=== PATIENT | female | born 1980 | race Caucasian/White ===

== ENCOUNTER 2021-09-22 00:20 | Emergency (ER) | payer OTHER, SELFPAY ==
[2021-09-22 00:35] VITALS: BP 126/83; PULSE 85; RESP 20; TEMP 36.7; O2SAT 99; BMI 34.7
--- NOTE | 2021-09-22 01:14 | ED_ITS ---
HPI - General Adult General Chief complaint: Abdominal Pain Stated complaint: VOMITING, STOMACHE SWOLLEN Time Seen by Provider: 09/22/21 00:53 Source: patient Mode of arrival: Ambulatory History of Present Illness HPI narrative: 41-year-old woman with irritable bowel syndrome who presents with 3-4 weeks of increasing abdominal pain that she describes as a burning pain in her upper abdomen when she has not eaten but significant increase in overall bloating and low pelvic pain that is been getting worse to the point that she is having d ifficulty eating and has lost at least 5 lb in the last weeks. She describes no fevers, cough, chills. She is chronically nauseated but does not actually vomit. She notes that she tries to eat a vegan diet however tends to eat mostly food from [employer], [employer] and pizza. She has not seemingly correlated healthy food intake with irritable bowel symptoms. She does have episodes of intermittent diarrhea and constipation. The abdominal pain and bloating over the last 3 weeks are dramatically different for her however. Related Data Previous Rx's Medication Instructions Recorded hyoscyamine sulfate 0.125 mg tablet 0.25 mg PO QID PRN #60 tab 09/22/21 Allergies Allergy/AdvReac Type Severity Reaction Status Date / Time SULFA Allergy Unknown Uncoded 08/01/17 11:50 Review of Systems Review of Systems Narrative: Remainder of complete review of systems is otherwise unremarkable except for that included in the HPI. Patient History Social History Smoking Status: Current every day smoker Smoking Status: Current every day smoker tobacco type: cigarettes Substance Use Type: marijuana Exam Initial Vital Signs Initial Vital Signs: Vital Signs Temperature 98.0 F 09/22/21 00:35 Pulse Rate 85 09/22/21 00:35 Respiratory Rate 20 09/22/21 00:35 Blood Pressure 126/83 09/22/21 00:35 Pulse Oximetry 99 09/22/21 00:35 General: Pale, mildly diaphoretic and tachypneic appearing in moderate distress but Able to give a complete and coherent history. Well-nourished well-developed HEENT: Moist mucous membranes, normal sclera with reactive pupils, Neck: No JVD, supple Respiratory: Lungs are clear to auscultation, no wheezing no rales no rhonchi. Full and symmetrical air movement Cardiac: Regular rate and rhythm no murmurs no bruits Abdomen: Soft, bloated significantly tender in the lower quadrants to even superficial palpation but no specific rebound or guarding. She has some mild tenderness in the epigastric region no tenderness in the right upper quadrant. Skin: Warm and dry, no rashes Neurologic: Grossly neurologically intact with no obvious asymmetries or abnormalities Extremities: No trauma, well perfused Psych: Cooperative, appropriate insight and affect Course Orders Ordered: ED Orders 09/22/21 01:13 Complete Blood Count AUTO DIFF Stat Comprehensive Metabolic Panel Stat Lipase Stat Magnesium Stat Test Serum,Qual Stat 09/22/21 01:48 CT abdomen pelvis w con Stat Hydromorphone HCl (Hydromorphone 0.5 Mg Inj) 0.5 mg IV Q15MIN PRN PRN Reason: Pain, Last Admin: 09/22/21 02:00 Dose: 0.5 mg Documented by: ANGY Discontinued Medications Al Hydrox/Mg Hydrox/Simethicone 20 ml/ Lidocaine HCl 15 ml 0 ml PO NOW ONE Stop: 09/22/21 00:57 Last Admin: 09/22/21 01:22 Dose: 35 ml Documented by: ANGY Sodium Chloride (Normal Saline 0.9%) 1,000 mls @ 1,000 mls/hr IV BOLUS ONE Stop: 09/22/21 02:47 Last Infusion: 09/22/21 04:08 Dose: 0 mls/hr Documented by: Admin: 09/22/21 01:59 Dose: 1,000 mls/hr Documented by: ANGY Ondansetron HCl (Ondansetron 4 Mg/2 Ml Inj) 4 mg IV NOW ONE Stop: 09/22/21 01:49 Last Admin: 09/22/21 01:59 Dose: 4 mg Documented by: ANGY Vital Signs Vital signs: Vital Signs - 8 hr 09/22/21 00:35 Temperature 98.0 F Pulse Rate 85 Respiratory Rate 20 Blood Pressure 126/83 Pulse Oximetry 99 Medical Decision Making Lab Data Result diagrams: 09/22/21 01:13 09/22/21 01:13 Labs: Lab Results 09/22/21 09/22/21 09/22/21 Range/Units 01:13 01:13 01:13 WBC 8.1 (4.5-11.0) X10^3/uL RBC 4.11 (4.0-5.2) X10^6/uL Hgb 12.7 (12.0-16.0) g/dL Hct 36.6 (36-46) % MCV 89.2 (80-100) fL MCH 30.8 (26-34) PG MCHC 34.6 (30-36) % RDW 12.1 (11.6-14.8) % Plt Count 301 (150-400) X10^3/uL Neut % (Auto) 65.0 (50-75) % Lymph % (Auto) 27.9 (25-40) % [place] % (Auto) 4.6 (3-14) % Eos % (Auto) 1.6 L (2-4) % Baso % (Auto) 0.9 (0-2) % Neut # (Auto) 5200 (2226-0238) /uL Lymph # (Auto) 2200 (4881-2264) /uL [place] # (Auto) 400 (0-900) /uL Eos # (Auto) 100 (0-450) /uL Baso # (Auto) 100 (0-100) /uL Sodium 137 (137-145) mmol/L Potassium 4.2 (3.4-5.1) mmol/L Chloride 105 (98-107) mmol/L Carbon Dioxide 22 (22-32) mmol/L BUN 14 (7-17) mg/dL Creatinine 0.51 L (0.52-1.04) mg/dL Estimated GFR > 60 (>60) mL/min BUN/Creatinine Ratio 27.5 H (6-22) Glucose 99 (70-100) mg/dL Calcium 8.7 (8.4-10.2) mg/dL Magnesium 1.9 (1.6-2.3) mg/dL Total Bilirubin 0.6 (0.2-1.3) mg/dL AST 29 (14-36) IU/L ALT 17 (<35) IU/L Alkaline Phosphatase 47 (38-126) U/L Total Protein 7.2 (6.3-8.2) g/dL Albumin 4.1 (3.5-5.0) g/dL Globulin 3.1 (1.7-4.1) g/dL Albumin/Globulin Ratio 1.3 (1.0-2.8) Lipase 83 (23-300) U/L Serum , Qual Negative (Negative) Point of Care Testing Test Results Negative Point of care testing: Point of Care Testing Test Results Negative Imaging Data CT scan - abdomen/pelvis: Radiologist's Impression: No evidence colitis, diverticulitis, bowel obstruction or obstructive uropathy. Appendix is not seen. Bilateral ovarian cysts. No ascites. Xin Lomax MD [facility] Narrative Medical decision making narrative: 41-year-old woman with history of irritable bowel syndrome and reflux recently started on omeprazole comes in with increasingly uncomfortable lower abdominal pain to the point that she is unable to sleep. She states that she is having bowel movements. CT scan is unrevealing as is blood work. No obvious bacterial infection or intra-abdominal infection or surgical diagnosis. With independent review of the CT scan she does have moderate stool loading throughout the colon and that may well be contributing to her overall discomfort. She requests a prescription for hike 0 seeming which will be prescribed. Will also send her home with a bottle of magnesium citrate to see if cleaning out the stool helps with the bloating and pain. Will ask her to continue the omeprazole she currently is taking to help with the burning upper abdominal pain. Also ask she follow-up with her primary care doctor and she may need referral to gastroenterology for upper and lower endoscopies at some point in the future. At this time, she is hemodynamically stable with no indications for hospital admission and she is safe for home discharge Discharge Plan Departure Patient Disposition: Home Clinical Impression: GERD (gastroesophageal reflux disease) Constipation Qualifiers: Constipation type: unspecified constipation type Qualified Code(s): K59.00 - Constipation, unspecified Abdominal pain Qualifiers: Abdominal location: generalized Qualified Code(s): R10.84 - Generalized abdominal pain Instructions: DI for Gastroesophageal Reflux Disease (GERD), DI for Constipation, DI for Irritable Bowel Syndrome Activity Restrictions/Additional Instructions: Thank you for coming in today Fortunately, I did not find any evidence for infection, kidney failure, liver failure, abdominal tumors or masses. Your colon is full of stool and that may be contributing to the bloating and discomfort. I am sending home with a bottle of magnesium citrate to try to completely clean out your colon. If you feel that this is not effective you can add MiraLax until you get to very loose stool. I will happily refill your hyoscyamine to help with irritable bowel symptoms Please do continue with the omeprazole that you are currently taking I would recommend a follow-up with her primary care doctor within the next 2-3 weeks if you are still having symptoms they a primary care doctor may suggest a gastroenterology referral. If you find that you are getting worse or develop any new symptoms, please feel free to return to the emergency department for further evaluation. Prescriptions: New hyoscyamine sulfate 0.125 mg tablet 0.25 mg PO QID PRN (Reason: dyspepsia) Qty: 60 0RF Referrals: Tapan Vann MD [Primary Care Provider] -
[2021-09-22] MEDS: MAG HYDROX/ALUMINUM/SIMETH SUS 20 ML, LIDOCAINE VISCOUS 2% 15 ML PO (01:22)
[2021-09-22 01:26] LABS: Add Manual Diff / Slide Review NO; Basophils Absolute Auto 100 /uL (0-100); Basophils Percent Auto 0.9 % (0-2); Eosinophils Absolute Auto 100 /uL (0-450); Eosinophils Percent Auto 1.6 % (2-4); Hematocrit 36.6 % (36-46); Hemoglobin 12.7 g/dL (12.0-16.0); Lymphocytes Absolute Auto 2200 /uL (1100-4500); Lymphocytes Percent Auto 27.9 % (25-40); Mean Corpuscular HGB Conc 34.6 % (30-36); Mean Corpuscular Hemoglobin 30.8 PG (26-34); Mean Corpuscular Volume 89.2 fL (80-100); Monocytes Absolute Auto 400 /uL (0-900); Monocytes Percent Auto 4.6 % (3-14); Neutrophils Absolute Auto 5200 /uL (1500-7000); Platelet Count 301 X10^3/uL (150-400); Red Blood Cell Count 4.11 X10^6/uL (4.0-5.2); Red Cell Distribution Width 12.1 % (11.6-14.8); White Blood Cell Count 8.1 X10^3/uL (4.5-11.0)
[2021-09-22 01:36] LABS: Alanine Aminotransferase 17 IU/L (<35); Albumin 4.1 g/dL (3.5-5.0); Albumin Globulin Ratio 1.3 (1.0-2.8); BUN Creatinine Ratio 27.5 (6-22); Bilirubin Total 0.6 mg/dL (0.2-1.3); Blood Urea Nitrogen 14 mg/dL (7-17); Calcium 8.7 mg/dL (8.4-10.2); Carbon Dioxide 22 mmol/L (22-32); Chloride 105 mmol/L (98-107); Estimated Glomerular Filt Rate > 60 mL/min (>60); Globulin 3.1 g/dL (1.7-4.1); Glucose 99 mg/dL (70-100); Lipase 83 U/L (23-300); Sodium 137 mmol/L (137-145); Total Protein 7.2 g/dL (6.3-8.2)
[2021-09-22 01:41] LABS: HEMOLYSIS 85 (0-50); Potassium 4.2 mmol/L (3.4-5.1)
[2021-09-22 01:42] LABS: Alkaline Phosphatase 47 U/L (38-126); Aspartate Aminotransferase 29 IU/L (14-36); Magnesium 1.9 mg/dL (1.6-2.3)
--- NOTE | 2021-09-22 01:48 | DI.CT.S_ITS ---
PROCEDURE: CT ABDOMEN PELVIS W CON INDICATIONS: Abdominal pain, bloating, weight loss TECHNIQUE: After the administration of intravenous contrast, axial sections acquired from the lung bases to the pubic symphysis. Coronal and sagittal reformats were performed. For radiation dose reduction, the following was used: automated exposure control, adjustment of mA and/or kV according to patient size. COMPARISON: None. FINDINGS: Image quality: Excellent. Lung bases: Mild bibasilar atelectasis. Heart: No significant findings. ABDOMEN: Liver: Unremarkable. Gallbladder: Unremarkable Biliary ducts: Unremarkable. Pancreas: Unremarkable. Spleen: Unremarkable. Adrenal Glands: Unremarkable. Kidneys and Ureters: Kidneys are symmetric in size and enhancement, and there is no obstructive uropathy. No perinephric inflammatory changes. Ureters are normal in course and caliber. Stomach and Bowel: Stomach, small bowel loops, and colon are unremarkable. Scattered colonic diverticulosis without evidence for acute diverticulitis. The appendix is not definitively visualized. However, no secondary findings of acute inflammation are noted in the right lower quadrant. Peritoneum: No abnormal intraperitoneal fluid. No free air. Ventral Wall: Small fat containing umbilical hernia without acute inflammation. Abdominal Nodes: No retroperitoneal or mesenteric adenopathy by size criteria. Vessels: Aorta and inferior vena cava are normal in size. PELVIS: Pelvic Organs: Bilateral ovarian cysts are present. Largest measures up to 2.9 cm in size. No surrounding inflammatory changes. Bladder: Unremarkable. Pelvic Nodes: No enlarged lymph nodes. Miscellaneous: No hernias are seen. Bones: Unremarkable. No acute compression fractures. IMPRESSION: 1. CT abdomen and pelvis without acute abnormalities. 2. Colonic diverticulosis without evidence for acute diverticulitis. 3. The appendix is not definitively visualized. No secondary findings for acute appendicitis identified. 4. Bilateral ovarian cysts measuring up to 2.9 cm. Consider further evaluation with pelvic ultrasound as clinically indicated. No significant discrepancy with the steward/stewardess night radiology preliminary report. Dictated by: oJey Terrazas M.D. on 09/22/2021 at 7:55 Approved by: Joey Terrazas M.D. on 09/22/2021 at 7:59
[2021-09-22] MEDS: SODIUM CHLORIDE 0.9% 1,000 ML 1000 ML IV (01:59)
[2021-09-22] MEDS: ONDANSETRON 4 MG/2 ML INJ IV (01:59)
[2021-09-22] MEDS: HYDROMORPHONE 0.5 MG INJ IV (02:00)
[2021-09-22 02:26] LABS: Pregnancy Test Serum,Qual Negative (Negative)
[2021-09-22 05:44] VITALS: O2SAT 94
[2021-09-22 05:45] VITALS: BP 172/90; PULSE 69; O2SAT 100
[2021-09-22] MEDS: MAGNESIUM CITRATE 300 ML SOLUTION PO (05:51)
== END 2021-09-22 06:00 | disposition home or self-care (01) ==
PROVIDERS: Emergency Provider Emergency Medicine; PCP Family Medicine
DX: K21.9 Gastro-esophageal reflux disease without esophagitis (principal); K59.00 Constipation, unspecified; R10.84 Generalized abdominal pain; R11.0 Nausea
CPT/HCPCS: 74177; 80053; 81025; 83690; 83735; 84703; 85025; 96361; 96374; 96375; 99284; J1170; J2405; Q9967